=== PATIENT | female | born 1990 | race American Indian/Alaskan Native ===

== ENCOUNTER 2017-05-22 18:05 | Emergency (ER) | payer MEDICAID ==
[2017-05-22] MEDS ORDERED: ZOFRAN ONE (18:40)
[2017-05-22 19:09] LABS: Basophils # (Auto) 0.1 K/mm3 (0.0-0.1); Basophils % (Auto) 0.9 % (0.0-1.8); Eosinophils % (Auto) 0.3 % (0.0-4.3); Hematocrit 39.1 % (30.3-42.9); Hemoglobin 12.9 gm/dl (10.1-14.3); Lymphocytes # (Auto) 1.7 K/mm3 (1.2-5.4); Lymphocytes % (Auto) 24.3 % (13.4-35.0); Mean Corpuscular HGB Conc 33 % (30-34); Mean Corpuscular Hemoglobin 29 pg (28-32); Mean Corpuscular Volume 86 fl (79-97); Monocytes # (Auto) 0.5 K/mm3 (0.0-0.8); Monocytes % (Auto) 6.5 % (0.0-7.3); Platelet Count 250 K/mm3 (140-440); Red Blood Count 4.52 M/mm3 (3.65-5.03); Red Cell Distribution Width 14.1 % (13.2-15.2)
[2017-05-22] MEDS ORDERED: NACL 0.9% 1000 ML 1,000 ML IV ONE (19:22)
--- NOTE | 2017-05-22 19:26 | Emergency Department Report ---
History of Present Illness - General Chief Complaint: Psych Stated Complaint: SUCIDAL /ETOH/POSS OVERDOSE Time Seen by Provider: 05/22/17 18:31 Source: patient, EMS Mode of arrival: Stretcher Limitations: No Limitations - History of Present Illness Initial Comments: pt. said at 2 pm she took intentional 4 pills of acetaminophen . she said she also drank alcohol. she calls the crisis line saying she wanted to kills herself ,so they sent people over to her house. she says she as a loaded gun which is was also planing to use to shoot herself.she lives in the house with her kids who are not currently with her MD Complaint: intentional overdose -: Gradual Intent: suicide attempt How Overdose Was Discovered: called suicide hotline Associated Symptoms: nausea/vomiting Treatments Prior to Arrival: none - Related Data Previous Rx's Medication Instructions Recorded Last Taken Type Nitrofurantoin [place]/M-Cryst 100 mg PO Q12HR #14 capsule 12/14/14 Unknown Rx [Macrobid CAP] metroNIDAZOLE 0.75%(NF) [Metrogel 1 applicatio TP BID #1 tube 12/14/14 Unknown Rx 0.75% TOPICAL] Ondansetron [Zofran Odt] 4 mg PO Q6H PRN #10 tab.rapdis 08/03/15 Unknown Rx methylPREDNISolone [Medrol] 4 mg PO DAILY #1 tab.ds.pk 08/03/15 Unknown Rx traMADol [Ultram] 50 mg PO Q6HR PRN #10 tablet 08/03/15 Unknown Rx Allergies Allergy/AdvReac Type Severity Reaction Status Date / Time Penicillins Allergy Hives Verified 08/03/15 10:48 ED Review of Systems ROS: Stated complaint: SUCIDAL /ETOH/POSS OVERDOSE Other details as noted in HPI Comment: All other systems reviewed and negative ED Past Medical Hx - Past Medical History Hx Psychiatric Treatment: Yes (PTSD) - Surgical History Additional Surgical History: x2 - Social History Smoking Status: Never Smoker Substance Use Type: None - Medications Home Medications: Home Medications Medication Instructions Recorded Confirmed Last Taken Type Nitrofurantoin [place]/M-Cryst 100 mg PO Q12HR #14 capsule 12/14/14 Unknown Rx [Macrobid CAP] metroNIDAZOLE 0.75%(NF) [Metrogel 1 applicatio TP BID #1 tube 12/14/14 Unknown Rx 0.75% TOPICAL] Ondansetron [Zofran Odt] 4 mg PO Q6H PRN #10 tab.rapdis 08/03/15 Unknown Rx methylPREDNISolone [Medrol] 4 mg PO DAILY #1 tab.ds.pk 08/03/15 Unknown Rx traMADol [Ultram] 50 mg PO Q6HR PRN #10 tablet 08/03/15 Unknown Rx ED Physical Exam - General Limitations: No Limitations General appearance: alert, in no apparent distress - Head Head exam: Present: atraumatic, normocephalic - Eye Eye exam: Present: normal appearance - ENT ENT exam: Present: mucous membranes moist - Neck Neck exam: Present: normal inspection - Respiratory Respiratory exam: Present: normal lung sounds bilaterally. Absent: respiratory distress - Cardiovascular Cardiovascular Exam: Present: regular rate, normal rhythm. Absent: systolic murmur, diastolic murmur, rubs, gallop - GI/Abdominal GI/Abdominal exam: Present: soft, normal bowel sounds. Absent: tenderness - Rectal Rectal exam: Present: deferred - Extremities Exam Extremities exam: Present: normal inspection - Back Exam Back exam: Present: normal inspection - Neurological Exam Neurological exam: Present: alert, oriented X3 - Psychiatric Psychiatric exam: Present: depressed, flat affect, suicidal ideation - Skin Skin exam: Present: warm, dry, intact, normal color. Absent: rash ED Course Vital Signs 05/22/17 05/22/17 05/22/17 19:27 19:30 19:48 Pulse Rate Respiratory Rate Blood Pressure 99/48 O2 Sat by Pulse 100 100 Oximetry 05/22/17 05/22/17 05/22/17 20:00 20:15 20:30 Pulse Rate Respiratory Rate Blood Pressure 103/61 98/52 100/57 O2 Sat by Pulse 96 Oximetry 05/22/17 05/22/17 05/22/17 20:45 21:00 21:15 Pulse Rate 99 H 99 H Respiratory 13 19 Rate Blood Pressure 104/62 102/58 103/60 O2 Sat by Pulse Oximetry 05/22/17 05/22/17 05/22/17 21:30 21:41 21:45 Pulse Rate 95 H 94 H Respiratory 16 18 15 Rate Blood Pressure 95/46 90/46 O2 Sat by Pulse 98 96 Oximetry 05/22/17 05/22/17 05/22/17 22:00 22:15 22:30 Pulse Rate 101 H 107 H 100 H Respiratory 19 13 18 Rate Blood Pressure 100/55 90/52 108/58 O2 Sat by Pulse 98 98 99 Oximetry 05/22/17 05/22/17 05/22/17 22:45 23:00 23:01 Pulse Rate 102 H 94 H Respiratory 28 H 16 18 Rate Blood Pressure 95/65 98/58 O2 Sat by Pulse 99 95 Oximetry 05/22/17 05/22/17 05/22/17 23:15 23:30 23:45 Pulse Rate 104 H 99 H 99 H Respiratory 18 15 18 Rate Blood Pressure 104/61 108/63 108/55 O2 Sat by Pulse 97 95 93 Oximetry 05/23/17 05/23/17 05/23/17 00:00 00:15 00:25 Pulse Rate 95 H 90 Respiratory 19 14 Rate Blood Pressure 89/36 99/50 99/50 O2 Sat by Pulse 97 95 97 Oximetry 05/23/17 05/23/17 05/23/17 00:31 00:45 01:01 Pulse Rate 107 H Respiratory 26 H Rate Blood Pressure 99/50 97/63 97/63 O2 Sat by Pulse 96 99 96 Oximetry 05/23/17 05/23/17 05/23/17 01:15 01:31 01:45 Pulse Rate Respiratory Rate Blood Pressure 97/63 218/106 218/106 O2 Sat by Pulse 97 93 96 Oximetry 05/23/17 05/23/17 05/23/17 02:00 02:15 02:31 Pulse Rate 108 H 89 104 H Respiratory 16 14 14 Rate Blood Pressure 81/48 81/48 40/21 O2 Sat by Pulse 96 94 95 Oximetry 05/23/17 05/23/17 05/23/17 02:45 03:00 03:15 Pulse Rate 86 85 94 H Respiratory 15 15 14 Rate Blood Pressure 84/50 92/32 99/56 O2 Sat by Pulse 92 95 98 Oximetry 05/23/17 05/23/17 03:31 03:45 Pulse Rate 87 80 Respiratory 14 13 Rate Blood Pressure 96/57 96/51 O2 Sat by Pulse 94 97 Oximetry ED Medical Decision Making - Lab Data Result diagrams: 05/22/17 18:57 05/23/17 00:57 - EKG Data -: EKG Interpreted by Ok EKG shows normal: sinus rhythm (rate of 90), axis (normal), intervals (normal), QRS complexes (normal), ST-T waves (nonspecific ST and T-wave changes) - Medical Decision Making Patient is medically cleared. She is being assessed by mental health worker Critical care attestation.: If time is entered above; I have spent that time in minutes in the direct care of this critically ill patient, excluding procedure time. ED Disposition Condition: Stable Referrals: PRIMARY CARE, [Primary Care Provider] - 3-5 Days
[2017-05-22 19:34] LABS: Alanine Aminotransferase 26 units/L (7-56); Albumin 4.3 g/dL (3.9-5); BUN/Creatinine Ratio 19; Blood Urea Nitrogen 13 mg/dL (7-17); Calcium 8.8 mg/dL (8.4-10.2); Hemolysis Index 11
[2017-05-22 19:48] LABS: HCG Qualitative,Urine Negative (Negative)
[2017-05-22 19:50] LABS: Amphetamine Screen,Urine PRESUMPTIVE NEGATIVE; Benzodiazepines Screen,Urine PRESUMPTIVE NEGATIVE; Cannabinoid Screen,Urine PRESUMPTIVE NEGATIVE; Cocaine Screen,Urine PRESUMPTIVE NEGATIVE; Methadone Screen,Urine PRESUMPTIVE NEGATIVE; Opiate Screen,Urine PRESUMPTIVE NEGATIVE
[2017-05-22 19:53] LABS: Bacteria,Urine 2+ /HPF (Negative); Mucus,Urine FEW /HPF
[2017-05-22 20:01] LABS: Color,Urine Yellow (Yellow)
[2017-05-22 20:04] LABS: Bilirubin,Urine Negative (Negative)
[2017-05-22 20:05] LABS: Blood,Urine Negative (Negative)
[2017-05-22 20:06] LABS: Urobilinogen,Urine < 2.0 mg/dL (<2.0)
[2017-05-22] MEDS ORDERED: PHOS-NAK PO ONE (20:42)
[2017-05-22] MEDS ORDERED: KCL 20 MEQ in D5W 1,000 ML IV SCH (21:00)
[2017-05-23 01:33] LABS: Alanine Aminotransferase 23 units/L (7-56); BUN/Creatinine Ratio 17; Blood Urea Nitrogen 10 mg/dL (7-17); Calcium 8.5 mg/dL (8.4-10.2); Hemolysis Index 8
[2017-05-23 12:56] VITALS: BP 114/62
== END 2017-05-23 17:30 ==
LOC: ED 18:05
DX: T39.1X2A Poisoning by 4-Aminophenol derivatives, intentional self-harm, initial encounter (principal); R11.2 Nausea with vomiting, unspecified; Y92.009 Unspecified place in unspecified non-institutional (private) residence as the place of occurrence of the external cause
CPT/HCPCS: 36415; 80053; 80307; 81001; 81025; 83735; 84100; 84443; 85025; 93005; 93010; 99285; G0480; J2405; J3480; J7070; 80320

== ENCOUNTER 2019-10-19 10:05 | Outpatient (CLI) | payer OTHER ==
--- NOTE | 2019-10-19 11:55 | XRay Report ---
RIGHT HIP 2 VIEWS INDICATION: RIGHT HIP PAIN. COMPARISON: None. IMPRESSION: No acute osseous or soft tissue abnormality. No significant DJD. Normal exam. Signer Name: Janusz Jones Jr, MD Signed: 10/19/2019 11:51 AM Workstation Name: [id number]
== END 2019-10-19 10:06 | disposition home or self-care (01) ==
LOC: XRAY 10:05
PROVIDERS: ATTEND Internal Medicine
DX: M25.551 Pain in right hip (principal); F43.10 Post-traumatic stress disorder, unspecified